=== PATIENT | female | born 1940 | race Caucasian/White ===

== ENCOUNTER → 2023-03-23 | Emergency (ER) | payer MEDICARE, BC ==
[~2023-03-23] VITALS: Ht 157.5 cm; Wt 49.9 kg
[~2023-03-23] MED LIST: IBUPROFEN 600 MG TABLET ONE; IBUPROFEN 600 MG TABLET PO ONE; LIDOCAINE 5% (PATCH) 1 EA PATCH TP ONE; LIDOCAINE 5% (PATCH) 1 EA PATCH TP SCH
[2023-03-23 10:27] VITALS: BP 128/67; TEMP 98.4; O2SAT 100
== END | disposition home or self-care (01) ==
LOC: ER 10:09
DX: S22.31XA Fracture of one rib, right side, initial encounter for closed fracture (principal); M25.551 Pain in right hip; E78.00 Pure hypercholesterolemia, unspecified; Z85.3 Personal history of malignant neoplasm of breast; W01.0XXA Fall on same level from slipping, tripping and stumbling without subsequent striking against object, initial encounter; Y93.89 Activity, other specified; Y92.89 Other specified places as the place of occurrence of the external cause; Y99.8 Other external cause status
CPT/HCPCS: 71100-TC; 73502

== ENCOUNTER 2023-07-11 15:26 | Emergency (ER) | payer MEDICARE, BC ==
[~2023-07-11] VITALS: Ht 157.5 cm; Wt 49.9 kg
[2023-07-11 15:40] VITALS: BP 158/106; TEMP 98.6
[2023-07-11 17:15] VITALS: O2SAT 98
== END 2023-07-11 17:16 | disposition home or self-care (01) ==
LOC: ER 15:31
DX: S22.31XA Fracture of one rib, right side, initial encounter for closed fracture (principal); S50.01XA Contusion of right elbow, initial encounter; E78.00 Pure hypercholesterolemia, unspecified; Z85.3 Personal history of malignant neoplasm of breast; V49.49XA Driver injured in collision with other motor vehicles in traffic accident, initial encounter; Y93.89 Activity, other specified; Y92.89 Other specified places as the place of occurrence of the external cause; Y99.8 Other external cause status
CPT/HCPCS: 71100-TC; 73080-TC